=== PATIENT | female | born 1995 ===

== ENCOUNTER 2018-03-10 14:33 | Emergency (ER) | payer OTHER ==
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
== END 2018-03-10 16:49 | disposition home or self-care (01) ==
LOC: UCCORT 14:33
DX: S13.4XXA Sprain of ligaments of cervical spine, initial encounter (principal); S00.93XA Contusion of unspecified part of head, initial encounter; Y04.8XXA Assault by other bodily force, initial encounter; Y93.9 Activity, unspecified; Y92.9 Unspecified place or not applicable; E11.9 Type 2 diabetes mellitus without complications; Z79.4 Long term (current) use of insulin
CPT/HCPCS: 72040; 99201; G0463